=== PATIENT | male | born 1965 | race Caucasian/White ===

== ENCOUNTER 2019-07-08 23:47 | Emergency (ER) | payer MEDICAID, SELFPAY ==
[2019-07-08 23:51] VITALS: BMI 29.7
[2019-07-08 23:56] VITALS: BP 125/89; PULSE 95; RESP 18; O2SAT 90
[2019-07-08 23:58] VITALS: BP 125/89; PULSE 102; RESP 21; O2SAT 89
[2019-07-09] VITALS (8 sets, daily range): BP systolic 141–172; BP diastolic 94–115; PULSE 96–127; RESP 15–21; O2SAT 83–94
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
[2019-07-09] MEDS: HYDROcodone-acetaminophen 7.5-325 mg Tablet 1 TAB PO (01:10)
[2019-07-09] MEDS: morphine 4 mg/mL SDV 1 mL IM (02:15)
[2019-07-09] MEDS: ondansetron 2 mg/ML SDV 2 mL 4 MG IVP ×2 (03:20→05:36)
[2019-07-09] MEDS: morphine 4 mg/mL SDV 1 mL IVP (03:20)
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
[2019-07-09] MEDS: fentaNYL 50 mcg/mL INJ 2mL IVP ×5 (04:19→09:43)
[2019-07-09 04:46] LABS: Hematocrit 44.4 % (42.0-52.0); Hemoglobin 14.4 g/dL (11.7-16.6); Mean Corpuscular HGB Conc 32.4 g/dL (30.0-36.0); Mean Corpuscular Hemoglobin 29.4 pg (28.0-34.0); Mean Corpuscular Volume 90.8 fL (80-94); Platelet Count 363 10^3/cmm (130-400); Red Blood Count 4.89 10^6/uL (4.1-5.3); Red Cell Distribution Width 14.4 % (12.1-15.1); White Blood Count 17.2 10^3/uL (4.0-10.0)
[2019-07-09 04:56] LABS: INR 0.95 (0.8-1.2)
[2019-07-09] MEDS: iohexol 300 mg/mL 100 mL Btl IV (04:58)
[2019-07-09] MEDS: sodium chloride 0.9% 1,000 ML 125 ML IV (05:16)
[2019-07-09 05:22] LABS: Alanine Aminotransferase 52 U/L (0-41); Albumin Level 4.3 g/dL (3.5-5.2); Alkaline Phosphatase 124 IU/L (40-130); Anion Gap 18.5 (5-19); Aspartate Amino Transferase 61 U/L (0-40); Blood Urea Nitrogen 13 mg/dL (6-20); Calcium 10.5 mg/Dl (8.6-10.0); Carbon Dioxide 19 mmol/L (22-29); Chloride 100 mmol/L (98-107); Globulin 4.6 g/dL (1.3-4.6); Glomerular Filtration Rate 101.9 mL/min (90-130); Glucose 157 mg/dL (74-109); Potassium 4.5 mmol/L (3.5-5.1); Sodium 133 mmol/L (136-145); Total Bilirubin 0.2 mg/dL (0.15-1.2); Total Protein 8.9 g/dL (6.6-8.7)
[2019-07-09 05:46] LABS: Absolute Eosinophils 0.1 10^3/cmm (0.0-0.7); Absolute Segmented Neutrophil 15.8 10/cmm (1.6-7.1); Band Neutrophils Absolute 0.5 10^3/cmm (0.0-1.2); Eosinophils 1 %; Lymphocytes 4 %; Segmented Neutrophils 92 %; Total Cells Counted 100 (0-100)
[2019-07-09 05:47] LABS: Platelet Estimate Increased (Normal)
[2019-07-09] MEDS: metoclopramide 5 mg/mL SDV 2 mL 10 MG IVP (06:37)
--- NOTE | 2019-07-09 07:50 | PC.NURSE ---
pt c/o pain, RN notified.
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
[2019-07-09 08:11] LABS: Add Urine Microscopic? YES; Bilirubin Urine 1+ (NEGATIVE); Blood Urine 2+ (Negative); Glucose Urine UA Norm (Normal); Ketones Urine Negative (Negative); Leukocyte Esterase Urine Negative (Negative); Nitrate Urine Negative (Negative); Protein Urine Trace (Negative); Urine Appearance Hazy (CLEAR); Urine Color Yellow (Yellow); Urobilinogen Urine Norm (Negative); pH Urine 5 (5-7)
[2019-07-09 08:13] LABS: Bacteria Urine TRACE; Squamous Epithelial Cell Urine 0-4 (0-5); WBC Urine 0-4 /hpf (0-5)
[2019-07-09 08:14] LABS: Hyaline Casts Urine 0-4; Mucus Urine 1+; Sperm Urine 2+
[2019-07-09 08:15] LABS: Add Urine Culture? No
--- NOTE | 2019-07-09 09:43 | PC.NURSE ---
EMS here at this time, [facility] called and notified of departure.
== END 2019-07-09 09:44 | disposition other institution (70) ==
PROVIDERS: Emergency Medicine; Emergency Provider Family Medicine; Family Provider Family Medicine
DX: S32.011A Stable burst fracture of first lumbar vertebra, initial encounter for closed fracture (principal); F17.210 Nicotine dependence, cigarettes, uncomplicated; V89.2XXA Person injured in unspecified motor-vehicle accident, traffic, initial encounter
CPT/HCPCS: 71260; 72131; 74177; 80053; 81003; 85007; 85027; 85610; 96360; 96361; 96372; 96374; 96375; 99282; J2270; J2405; J2765; J3010; J7030; Q9967

== ENCOUNTER 2019-07-21 08:42 | Emergency (ER) | payer MEDICAID, SELFPAY ==
[2019-07-21 08:49] VITALS: BMI 28.1
[2019-07-21 08:57] VITALS: BP 129/85; PULSE 91; RESP 20; TEMP 36.6; O2SAT 96
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
[2019-07-21 09:27] VITALS: BP 128/90; PULSE 78; RESP 18; O2SAT 97
--- NOTE | 2019-07-21 12:35 | DCPLANNER ---
automotive general sales manager had message to speak with patient about getting established with a primary care physician. automotive general sales manager unable to speak with patient at this time, called this number was unreachable, then called [phone] and this was to [employer].
== END 2019-07-21 09:28 | disposition home or self-care (01) ==
PROVIDERS: Emergency Provider Nurse Practitioner Family; Family Provider Family Medicine
DX: S32.011A Stable burst fracture of first lumbar vertebra, initial encounter for closed fracture (principal); V89.2XXA Person injured in unspecified motor-vehicle accident, traffic, initial encounter; F17.210 Nicotine dependence, cigarettes, uncomplicated
CPT/HCPCS: 99281

== ENCOUNTER 2019-07-30 18:44 | Emergency (ER) | payer MEDICAID, SELFPAY ==
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
[2019-07-30 18:51] VITALS: BP 138/92; PULSE 121; RESP 18; TEMP 36.6; O2SAT 95; BMI 29.0
[2019-07-30 19:22] LABS: Basophils # 0.1 10^3/uL (0.0-0.1); Basophils % 0.6 %; Eosinophils # 0.2 10^3/uL (0.0-0.8); Eosinophils % 1.6 %; Hematocrit 41.1 % (42.0-52.0); Hemoglobin 13.7 g/dL (11.7-16.6); Lymphocytes # 2.5 10^3/uL (0.8-4.8); Lymphocytes % 24.2 %; Mean Corpuscular HGB Conc 33.3 g/dL (30.0-36.0); Mean Corpuscular Hemoglobin 29.4 pg (28.0-34.0); Mean Corpuscular Volume 88.2 fL (80-94); Mean Platelet Volume 9.2 fL (7.4-10.4); Monocytes # 0.6 10^3/uL (0.2-0.9); Monocytes % 5.9 %; Neutrophils % 67.1 %; Nucleated Red Blood Cells % 0 %; Platelet Count 383 10^3/cmm (130-400); Red Blood Count 4.66 10^6/uL (4.1-5.3); Red Cell Distribution Width 14.5 % (12.1-15.1); White Blood Count 10.4 10^3/uL (4.0-10.0)
[2019-07-30 19:31] LABS: Anion Gap 18.1 (5-19); Blood Urea Nitrogen 11 mg/dL (6-20); Calcium 9.7 mg/dL (8.5-10.5); Carbon Dioxide 20 mmol/L (22-29); Chloride 104 mmol/L (98-107); Glomerular Filtration Rate 70.6 mL/min (90-130); Glucose 135 mg/dL (74-109); Osmolality Calculated 284 mOsm/kg (285-295); Potassium 4.1 mmol/L (3.5-5.1); Sodium 138 mmol/L (136-145)
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
[2019-07-30 20:00] LABS: Bacteria Urine TRACE; Bilirubin Urine Neg (NEGATIVE); Blood Urine Neg (Negative); Glucose Urine UA Norm (Normal); Ketones Urine Negative (Negative); Leukocyte Esterase Urine Negative (Negative); Nitrate Urine Negative (Negative); Protein Urine Neg (Negative); RBC Urine RARE /hpf (0-2); Squamous Epithelial Cell Urine RARE (0-5); Urine Appearance Clear (CLEAR); Urine Color Yellow (Yellow); Urobilinogen Urine Norm (Negative); WBC Urine RARE /hpf (0-5); pH Urine 6 (5-7)
[2019-07-30 20:39] LABS: Lactate (Lactic Acid level) 4.1 mmol/L (0.5-2.2)
--- NOTE | 2019-07-30 20:40 | PC.NURSE ---
LACTIC 4.1
[2019-07-30 20:41] VITALS: RESP 17
[2019-07-30] MEDS: morphine 4 mg/mL SDV 1 mL IVP (20:41)
[2019-07-30] MEDS: ondansetron 2 mg/ML SDV 2 mL 4 MG IVP (20:41)
[2019-07-30 20:52] LABS: Alanine Aminotransferase 86 U/L (0-41); Albumin Level 4.3 g/dL (3.5-5.2); Alkaline Phosphatase 131 IU/L (40-130); Anion Gap 18.1 (5-19); Aspartate Amino Transferase 83 U/L (0-40); Blood Urea Nitrogen 11 mg/dL (6-20); C Reactive Protein 2.4 mg/L (0.0-4.9); Calcium 9.9 mg/dL (8.5-10.5); Carbon Dioxide 19 mmol/L (22-29); Chloride 105 mmol/L (98-107); Globulin 4.3 g/dL (1.3-4.6); Glomerular Filtration Rate 78.8 mL/min (90-130); Glucose 132 mg/dL (74-109); Lipase 33 U/L (13-60); Potassium 4.1 mmol/L (3.5-5.1); Sodium 138 mmol/L (136-145); Total Bilirubin 0.2 mg/dL (0.15-1.2); Total Protein 8.6 g/dL (6.6-8.7)
[2019-07-30] MEDS: sodium chloride 0.9% 1,000 ML 999 ML IV (21:07)
[2019-07-30 22:08] VITALS: BP 163/98; O2SAT 97
[2019-07-30 23:40] VITALS: BP 141/89
== END 2019-07-30 23:42 | disposition home or self-care (01) ==
PROVIDERS: Nurse Practitioner Family; Emergency Provider Emergency Medicine; Family Provider Family Medicine
DX: E86.0 Dehydration (principal); F17.210 Nicotine dependence, cigarettes, uncomplicated
CPT/HCPCS: 72131; 74176; 80048; 80053; 81001; 83605; 83690; 85025; 86140; 96360; 96361; 96374; 96375; 99283; J2270; J2405; J7030

== ENCOUNTER 2019-08-02 14:36 | Emergency (ER) | payer MEDICAID, SELFPAY ==
[2019-08-02 15:34] VITALS: BP 154/131; PULSE 104; RESP 16; TEMP 36.6; O2SAT 98; BMI 29.0
--- NOTE | 2019-08-02 16:06 | ED_ITS ---
Entered by Ceci Meneses, acting as scribe for Brenda Julian Aug 02, 2019 14:36 HPI - Back Pain/Injury General: Chief Complaint: Back Pain/Injury Stated Complaint: BACK PAIN Time Seen by Provider: 08/02/19 16:05 Source: patient and RN notes reviewed Mode of arrival: ambulatory Limitations: no limitations History of Present Illness: HPI Narrative: 53 yo male presents to ED with complaints of back pain that began 5 days ago. He said it feels like a kidney stone, which he has had in the past. He denies burning or pain with urination. He has no blood in urine. He said the pain is constant at an 8 out of 10 but it goes up to a 10 out of 10 and when it does that he feels like he is going to pass out. He denies fever but has had chills. The patient denies any other complaints at this time. MD elicited complaint: back pain (R flank) Pertinent past history: kidney stones Onset (ago): day(s) (5) Timing: constant Severity: severe Similar Symptoms Previously: Yes Quality: sharp Location: right flank Radiation: none Exacerbating factors: movement Relieving factors: none Context: history of kidney stones Associated symptoms: Reports nausea; Deny chills, difficulty walking, dysuria, fatigue, fever(s), hematuria, syncope or urinary urgency Work related injury: No Review of Systems General: Reports: other (negative unless marked) Const: Denies: fever, chills, body aches, fatigue, malaise or diaphoresis Eyes: Denies: change in vision or blurry vision ENMT: Denies: throat pain, painful swallowing, hoarseness, ear pain, ear discharge, Change in hearing or nasal discharge Card: Denies: chest pain, palpitations, irregular heart rhythm, syncope, pre- syncope, shortness of breath on exertion or shortness of breath when lying down Resp: Denies: shortness of breath, productive cough, non-productive cough, wheezing, coughing up blood or chest congestion GI: Reports: nausea : Denies: difficulty urinating, painful urination, urinary frequency, urinary urgency, decreased urine ouput, urinary incontinence or blood in urine Musc: Denies: neck pain, back pain, extremity pain, extremity swelling, joint pain, joint swelling, joint warmth or joint stiffness Skin/Breast: Denies: rash, skin tenderness or yellow skin Neuro: Denies: headache, numbness in extremities, weakness in extremities, changes in sensation, lack of coordination, difficulty walking, dizziness, vertigo or confusion Endo: Denies: excessive thirst, tired all the time, cold intolerance, excessive sweating, flushing or hot flashes Jose L/Lymph: Denies: easy bruising, easy bleeding, petechiae or enlarged lymph nodes All/Imm: Denies: hives, throat swelling, tongue swelling, facial swelling or acute wheezing PFSH ED PFSH: Statuses (acute, chronic, etc) shown below reflect problem list status as previously entered and may not be historically accurate Social History Smoking and tobacco status: current every day smoker Physical Exam Const: COMMON NORMALS: no apparent distress, oriented x3, no limitations, healthy appearing and well nourished EXAM LIMITATIONS: no altered mental status GENERAL APPEARANCE: cooperative, well kempt and well developed ORIENTATION/CONSCIOUSNESS: Yes awake HENMT: COMMON NORMALS: normocephalic, head/scalp atraumatic, hearing grossly normal bilaterally, external ears normal, EAC's normal, external nose normal and moist oral mucous membranes HEAD & SCALP: normal to inspection, normocephalic and atraumatic FACE & SINUS: normal facial exam and face symmetric NOSE: external nose normal and nares normal EXTERNAL EAR: Yes external ears normal EXTERNAL AUDITORY CANAL: EAC's normal MOUTH: oral and palatal mucosa normal and tongue normal Eye: COMMON NORMALS: PERRL, EOMs intact bilaterally, conjunctivae normal and no scleral icterus GENERAL EYE: normal appearance of both eyes and normal light reflex CONJUNCTIVA: Yes conjunctivae normal SCLERA: sclerae normal CORNEA: Yes corneas normal PUPIL: Yes PERRL DIRECT OPHTHALMOSCOPY: Yes normal light reflex Neck/C-Spine: COMMON NORMALS: full ROM, no lymphadenopathy, supple, no meningeal signs and no JVD GENERAL: Yes normal visual inspection and Yes trachea midline CERVICAL SPINE: Yes cervical ROM normal Chest: COMMONS NORMALS: inspection of chest normal and palpation of chest normal Resp: COMMON NORMALS: normal respiratory effort, no retractions, no use of accessory muscles and clear to auscultation bilaterally EFFORT & INSPECTION: Yes able to speak in complete sentences AUSCULTATION: clear to auscultation bilaterally Cardio: COMMON NORMALS: no JVD, regular rate, regular rhythm, S1 normal heart sound, S2 normal heart sound, no gallops, no clicks, no murmurs and no rub JUGULAR VENOUS DISTENTION: no JVD RATE: regular rate RHYTHM: regular rhythm HEART SOUNDS: S1 normal and S2 normal GI: COMMON NORMALS: soft to palpation, non-tender, no hepatosplenomegaly and no masses INSPECTION: Yes normal to inspection PALPATION: Yes soft and Yes no hepatosplenomegaly : COMMON NORMALS: Yes no CVA tenderness BLADDER/KIDNEY EXAM: Yes no CVA tenderness Back/Pelvis: COMMON NORMALS: no CVA tenderness, thoracic and lumbar spine normal to inspection, no thoracic nor lumbar tenderness and thoraco-lumbar ROM normal Extremity: COMMON NORMALS: normal to inspection, full ROM, normal capillary refill, no joint enlargement, no clubbing, cyanosis or edema and no calf tenderness Neuro: COMMON NORMALS: oriented x3, CN's II-XII intact bilaterally, moves all extremities, no focal motor deficits and no sensory deficits noted MENINGEAL SIGNS: Yes no meningeal signs Psych: COMMON NORMALS: mental status grossly normal, thought process normal, cooperative, affect normal, speech normal and activity/motor behavior normal APPEARANCE: Yes well kempt SPEECH: Yes normal speech THOUGHT PROCESS: normal thought process Skin: COMMON NORMALS: no rashes or lesions noted, skin turgor normal, no jaundice, no petechiae and no mottling GENERAL SKIN EXAM: no rashes or lesions noted and turgor normal Course Vital Signs: Vital signs: Vital Signs Temperature 97.9 F 08/02/19 15:34 Pulse Rate 91 08/02/19 18:52 Respiratory Rate 16 08/02/19 18:52 Blood Pressure 128/84 08/02/19 18:52 Pulse Oximetry 95 08/02/19 18:52 MDM - Back Pain/Injury MDM Narrative: Medical decision making narrative: Dave is a 53-year-old male who comes in complaining of 5 to 6 days of intermittent right flank pain. He states it feels like when he has had kidney stones in the past. There is no evidence of kidney stone on today's scan. Please see Dr. Mcnally's note from his previous visit but he was felt to be dehydrated at that time after drinking heavily. The symptoms appear to have resolved but he does have elevated liver enzymes. There is no evidence of gallbladder or liver pathology per lab or CT and ultrasound at this time. This could be just from alcoholic liver disease. The patient agrees to return should his symptoms change or worsen I have directed him to Dr. Mejia for outpatient HIDA scan and further work-up of his elevated liver enzymes. The patient states he understands all this and will follow-up as directed or return here if needed. Lab Data: Labs: Lab Results 08/02/19 08/02/19 08/02/19 Range/Units 16:28 16:30 16:30 WBC 7.7 (4.0-10.0) 10^3/ uL RBC 4.38 (4.1-5.3) 10^6/u L Hgb 12.9 (11.7-16.6) g/dL Hct 38.9 L (42.0-52.0) % MCV 88.8 (80-94) fL MCH 29.5 (28.0-34.0) pg MCHC 33.2 (30.0-36.0) g/dL RDW 14.7 (12.1-15.1) % Plt Count 311 (130-400) 10^3/c mm MPV 9.5 (7.4-10.4) fL Neut % (Auto) 57.6 % Lymph % (Auto) 30.4 % Burnett % (Auto) 7.8 % Eos % (Auto) 3.1 % Baso % (Auto) 0.8 % Neut # (Auto) 4.5 (1.8-7.7) 10^3/u L Lymph # (Auto) 2.4 (0.8-4.8) 10^3/u L Burnett # (Auto) 0.6 (0.2-0.9) 10^3/u L Eos # (Auto) 0.2 (0.0-0.8) 10^3/u L Baso # (Auto) 0.1 (0.0-0.1) 10^3/u L Nucleated RBC % (a uto) 0 % Nucleated RBCs # 0.0 /100WBC Sodium 132 L (136-145) mmol/L Potassium 4.6 (3.5-5.1) mmol/L Chloride 99 (98-107) mmol/L Carbon Dioxide 22 (22-29) mmol/L Anion Gap 15.6 (5-19) BUN 10 (6-20) mg/dL Creatinine 0.8 (0.7-1.2) mg/dL GFR Calculation 101.9 (90-130) mL/min Glucose 121 H (65-115) mg/dL Lactic Acid (0.5-2.2) mmol/L Calcium 10.1 (8.5-10.5) mg/dL Total Bilirubin 0.2 (0.15-1.2) mg/dL AST 110 H (0-40) U/L ALT 121 H (0-41) U/L Alkaline Phosphata se 134 H (40-130) IU/L Total Protein 8.0 (6.6-8.7) g/dL Albumin 4.4 (3.5-5.2) g/dL Globulin 3.6 (1.3-4.6) g/dL Lipase (13-60) U/L Urine Color Yellow (Yellow) Urine Appearance Clear (CLEAR) Urine pH 6.5 (5-7) Ur Specific Gravit y 1.005 (1.005-1.030) Urine Protein Neg (Negative) Urine Glucose (UA) Norm (Normal) Urine Ketones Negative (Negative) Urine Occult Blood Neg (Negative) Urine Nitrate Negative (Negative) Urine Bilirubin Neg (NEGATIVE) Urine Urobilinogen Norm (Negative) mg/dL Ur Leukocyte Dottie ase Negative (Negative) Urine RBC None (0-2) /hpf Urine WBC None (0-5) /hpf Ur Squamous Epith Cells 0-4 H (0-5) Urine Bacteria None (NONE) Acetaminophen (10-30) ug/mL Hepatitis A IgM Ab (Nonreactive) Hep Bs Antigen (Nonreactive) Hep B Core IgM Ab (Nonreactive) Hepatitis C Antibo dy (Nonreactive) 08/02/19 08/02/19 08/02/19 Range/Units 16:30 16:30 16:30 WBC (4.0-10.0) 10^3/ uL RBC (4.1-5.3) 10^6/u L Hgb (11.7-16.6) g/dL Hct (42.0-52.0) % MCV (80-94) fL MCH (28.0-34.0) pg MCHC (30.0-36.0) g/dL RDW (12.1-15.1) % Plt Count (130-400) 10^3/c mm MPV (7.4-10.4) fL Neut % (Auto) % Lymph % (Auto) % Burnett % (Auto) % Eos % (Auto) % Baso % (Auto) % Neut # (Auto) (1.8-7.7) 10^3/u L Lymph # (Auto) (0.8-4.8) 10^3/u L Burnett # (Auto) (0.2-0.9) 10^3/u L Eos # (Auto) (0.0-0.8) 10^3/u L Baso # (Auto) (0.0-0.1) 10^3/u L Nucleated RBC % (a uto) % Nucleated RBCs # /100WBC Sodium (136-145) mmol/L Potassium (3.5-5.1) mmol/L Chloride (98-107) mmol/L Carbon Dioxide (22-29) mmol/L Anion Gap (5-19) BUN (6-20) mg/dL Creatinine (0.7-1.2) mg/dL GFR Calculation (90-130) mL/min Glucose (65-115) mg/dL Lactic Acid 1.3 (0.5-2.2) mmol/L Calcium (8.5-10.5) mg/dL Total Bilirubin (0.15-1.2) mg/dL AST (0-40) U/L ALT (0-41) U/L Alkaline Phosphata se (40-130) IU/L Total Protein (6.6-8.7) g/dL Albumin (3.5-5.2) g/dL Globulin (1.3-4.6) g/dL Lipase 22 (13-60) U/L Urine Color (Yellow) Urine Appearance (CLEAR) Urine pH (5-7) Ur Specific Gravit y (1.005-1.030) Urine Protein (Negative) Urine Glucose (UA) (Normal) Urine Ketones (Negative) Urine Occult Blood (Negative) Urine Nitrate (Negative) Urine Bilirubin (NEGATIVE) Urine Urobilinogen (Negative) mg/dL Ur Leukocyte Dottie ase (Negative) Urine RBC (0-2) /hpf Urine WBC (0-5) /hpf Ur Squamous Epith Cells (0-5) Urine Bacteria (NONE) Acetaminophen < 5.0 L (10-30) ug/mL Hepatitis A IgM Ab Non-reactive (Nonreactive) Hep Bs Antigen Reactive H (Nonreactive) Hep B Core IgM Ab Non-reactive (Nonreactive) Hepatitis C Antibo dy Reactive H (Nonreactive) Imaging Data^: CT Abd/Pel: Radiologist's impression: [address] [address] [address] Scan Report Signed Patient: Dave Resendez #: [id number] : 1965Acct#:[id number] Age/Sex: 53 / MADM Date: 08/02/19 Loc: ERRoom/Bed: Attending Dr: Ordering Provider/Ordering MD: Brenda Julian DO Date of Service: 08/02/19 Procedure(s): CT kidney stone 72074 Accession Number(s): [id number] Report Number: [id number] PROCEDURE INFORMATION: Exam: CT Abdomen And Pelvis Without Contrast Exam date and time: 08/02/2019 4:22 PM Age: 53 years old Clinical indication: Abdominal pain; Flank; Right; Prior surgery; Surgery type: Bladder biopsy; Additional info: Flank/abdominal pain TECHNIQUE: Imaging protocol: Computed tomography of the abdomen and pelvis without contrast. Total DLP: 1355.77 mGy-cm Radiation optimization: All CT scans at this facility use at least one of these dose optimization techniques: automated exposure control; mA and/or kV adjustment per patient size (includes targeted exams where dose is matched to clinical indication); or iterative reconstruction. COMPARISON: CT chest abd pel w con* 07/09/2019 5:[address] kidney stone [id number] 07/30/2019 8:56:41 PM FINDINGS: Limitations: The absence of intravenous contrast lessens the sensitivity of this study for solid organ abnormalities. Mediastinum: There is a small hiatal hernia. Liver: There is no focal abnormality within the liver. Gallbladder and bile ducts: The gallbladder is normal. Pancreas: The pancreas is normal. Spleen: The spleen is normal. Adrenals: The adrenal glands are normal. Kidneys and ureters: The kidneys are normal. There is no evidence of renal or ureteral calcifications. There is no evidence of hydronephrosis. Stomach and bowel: There is no evidence of colitis/diverticulitis. Appendix: A normal appendix is identified. Intraperitoneal space: There is no evidence of free intraperitoneal fluid. Vasculature: The aorta demonstrates mild atherosclerotic calcification. There is no evidence of an abdominal aortic aneurysm. Lymph nodes: Unremarkable. No enlarged lymph nodes. Bladder: Urinary bladder is unremarkable. Reproductive: The prostate and seminal vesicles are normal. Bones/joints: There are old compression fractures of L1 and the superior endplate of L5 with kyphoplasty at L1. Soft tissues: Unremarkable. CT/CT kidney stone [id number] IMPRESSION: No urinary tract calculi are identified. Radiation Dose CTDIVOL = (mGy): DLP = 1355.77 (mGy-cm) Dictated By:Everett Joseph Signed By:Giuseppe Joseph Date/Time:08/02/19 1717 DD/ Discharge Plan Discharge Patient Disposition: Home, Self-Care Clinical Impression: Acute flank pain Condition: Stable Prescriptions: No Action venlafaxine 75 mg capsule,extended release 24hr 75 mg PO DAILY RF: 0 Klonopin 0.5 mg tablet 0.5 mg PO PRN PRN (Reason: Agitation) RF: 0 venlafaxine 150 mg capsule,extended release 24hr 150 mg PO DAILY RF: 0 gabapentin 800 mg tablet 800 mg PO TID RF: 0 omeprazole 20 mg capsule,delayed release(DR/EC) 20 mg PO DAILY RF: 0 Zyprexa 20 mg Tablet 20 mg PO DAILY RF: 0 hydrocodone-acetaminophen 5-325 mg tablet 1 tab PO Q6H PRN (Reason: pain) Qty: 20 RF: 0 Discharge Orders: Discharge Order (Routine); Ordered 08/02/19 Ordered By: Brenda Julian Referrals: Trever Mejia MD [Physician] - 1-3 days Katina Manriquez MD [Family Provider] - Discharge Diet: Advance as tolerated Discharge Activity: Resume usual activity Patient Instructions: Abdominal Pain - Adult, Abdominal Pain (ED), Flank Pain (ED) Activity Restrictions/Additional Instructions: Please return to the ER immediately for any of the signs or symptoms listed on your discharge instruction sheets, worsening/changing of your symptoms, you are not getting better as quickly as expected, or for ANY other cause or concerns. A definitive cause of your pain has not been determined. If your symptoms worsen or change in any way please return to the ER for recheck. Be certain to follow-up with Dr. Mejia as an outpatient as soon as possible for further evaluation of your pain. Discharge Date/Time: 08/02/19 18:53 Coding Level of Care Code ED Concrete Block Mason for Chg Fwd Exam Problem Focused The documentation recorded by the Zaira christy Valerie R, accurately reflects the service I personally performed and the decisions made by , Brenda Julian Aug 02, 2019 14:36
--- NOTE | 2019-08-02 16:18 | XR_ITS ---
WS: [id number] CHEST XRAY TECHNIQUE: Portable chest. CLINICAL INFORMATION: cough COMPARISON: [id number] FINDINGS: Heart: Normal cardiac silhouette. Lungs: Lungs are clear. No consolidation or pleural effusion. Bones: Normal visualized bony structures. XR/XR chest 1V portable [id number] IMPRESSION: Normal chest
--- NOTE | 2019-08-02 16:18 | CTR_ITS ---
PROCEDURE INFORMATION: Exam: CT Abdomen And Pelvis Without Contrast Exam date and time: 08/02/2019 4:22 PM Age: 53 years old Clinical indication: Abdominal pain; Flank; Right; Prior surgery; Surgery type: Bladder biopsy; Additional info: Flank/abdominal pain TECHNIQUE: Imaging protocol: Computed tomography of the abdomen and pelvis without contrast. Total DLP: 1355.77 mGy-cm Radiation optimization: All CT scans at this facility use at least one of these dose optimization techniques: automated exposure control; mA and/or kV adjustment per patient size (includes targeted exams where dose is matched to clinical indication); or iterative reconstruction. COMPARISON: CT chest abd pel w con* 07/09/2019 5:[address] kidney stone [id number] 07/30/2019 8:56:41 PM FINDINGS: Limitations: The absence of intravenous contrast lessens the sensitivity of this study for solid organ abnormalities. Mediastinum: There is a small hiatal hernia. Liver: There is no focal abnormality within the liver. Gallbladder and bile ducts: The gallbladder is normal. Pancreas: The pancreas is normal. Spleen: The spleen is normal. Adrenals: The adrenal glands are normal. Kidneys and ureters: The kidneys are normal. There is no evidence of renal or ureteral calcifications. There is no evidence of hydronephrosis. Stomach and bowel: There is no evidence of colitis/diverticulitis. Appendix: A normal appendix is identified. Intraperitoneal space: There is no evidence of free intraperitoneal fluid. Vasculature: The aorta demonstrates mild atherosclerotic calcification. There is no evidence of an abdominal aortic aneurysm. Lymph nodes: Unremarkable. No enlarged lymph nodes. Bladder: Urinary bladder is unremarkable. Reproductive: The prostate and seminal vesicles are normal. Bones/joints: There are old compression fractures of L1 and the superior endplate of L5 with kyphoplasty at L1. Soft tissues: Unremarkable. CT/CT kidney stone [id number] IMPRESSION: No urinary tract calculi are identified. Radiation Dose CTDIVOL = (mGy): DLP = 1355.77 (mGy-cm)
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
[2019-08-02 16:45] LABS: Basophils # 0.1 10^3/uL (0.0-0.1); Basophils % 0.8 %; Eosinophils # 0.2 10^3/uL (0.0-0.8); Eosinophils % 3.1 %; Hematocrit 38.9 % (42.0-52.0); Hemoglobin 12.9 g/dL (11.7-16.6); Lymphocytes # 2.4 10^3/uL (0.8-4.8); Lymphocytes % 30.4 %; Mean Corpuscular HGB Conc 33.2 g/dL (30.0-36.0); Mean Corpuscular Hemoglobin 29.5 pg (28.0-34.0); Mean Corpuscular Volume 88.8 fL (80-94); Mean Platelet Volume 9.5 fL (7.4-10.4); Monocytes # 0.6 10^3/uL (0.2-0.9); Monocytes % 7.8 %; Neutrophils # 4.5 10^3/uL (1.8-7.7); Neutrophils % 57.6 %; Nucleated Red Blood Cells % 0 %; Platelet Count 311 10^3/cmm (130-400); Red Blood Count 4.38 10^6/uL (4.1-5.3); Red Cell Distribution Width 14.7 % (12.1-15.1); White Blood Count 7.7 10^3/uL (4.0-10.0)
[2019-08-02 16:49] LABS: Bilirubin Urine Neg (NEGATIVE); Blood Urine Neg (Negative); Glucose Urine UA Norm (Normal); Ketones Urine Negative (Negative); Leukocyte Esterase Urine Negative (Negative); Nitrate Urine Negative (Negative); Protein Urine Neg (Negative); Specific Gravity, Urine 1.005 (1.005-1.030); Urine Appearance Clear (CLEAR); Urine Color Yellow (Yellow); Urobilinogen Urine Norm (Negative); pH Urine 6.5 (5-7)
[2019-08-02 16:57] LABS: Lactic Sepsis W/Reflex 1.3 mmol/L (0.5-2.2)
[2019-08-02 17:04] LABS: Alanine Aminotransferase 121 U/L (0-41); Albumin Level 4.4 g/dL (3.5-5.2); Alkaline Phosphatase 134 IU/L (40-130); Anion Gap 15.6 (5-19); Aspartate Amino Transferase 110 U/L (0-40); Blood Urea Nitrogen 10 mg/dL (6-20); Calcium 10.1 mg/dL (8.5-10.5); Carbon Dioxide 22 mmol/L (22-29); Chloride 99 mmol/L (98-107); Creatinine Clr Calc Pharmacy 113.1443; Globulin 3.6 g/dL (1.3-4.6); Glomerular Filtration Rate 101.9 mL/min (90-130); Potassium 4.6 mmol/L (3.5-5.1); Sodium 132 mmol/L (136-145); Total Bilirubin 0.2 mg/dL (0.15-1.2)
[2019-08-02] MEDS: ondansetron 2 mg/ML SDV 2 mL 4 MG IVP (17:05)
[2019-08-02 17:08] VITALS: RESP 16
[2019-08-02] MEDS: morphine 4 mg/mL SDV 1 mL IVP (17:08)
[2019-08-02 17:11] LABS: Add Urine Culture? No; Squamous Epithelial Cell Urine 0-4 (0-5)
--- NOTE | 2019-08-02 17:29 | US_ITS ---
WS: [id number] Complete ABDOMINAL ULTRASOUND HISTORY: Abdominal Pain COMPARISON: None available. Liver: 20.0 cm in length. Liver is moderately enlarged. Mild coarsened echotexture. No bile duct dila tation or mass. Gallbladder: Normally distended with no gallstones, wall thickening or pericholecystic fluid. Gallbladder wall thickness: 2 mm. Pancreas: Not visualized. CBD: 2.0 mm. Right kidney: 10.7 cm x 5.0 cm x 4.9 cm. No mass, cortical thickening or hydronephrosis. Left kidney: 11.7 cm x 5.5 cm x 5.5 cm. No mass, cortical thickening or hydronephrosis. Spleen: Normal size and echogenicity. Abdominal aorta and IVC are within normal limits. No ascites. US/US abdomen complete* [id number] IMPRESSION: 1. Moderate hepatomegaly and mild hepatic steatosis. 2. Normal gallbladder. 3. No abnormality identified.
[2019-08-02 18:04] LABS: Lipase 22 U/L (13-60)
[2019-08-02 18:08] LABS: Acetaminophen < 5.0 ug/mL (10-30)
[2019-08-02 18:14] LABS: Hepatitis A Antibody IgM. Non-Reactive (Nonreactive); Hepatitis B Core IgM Non-Reactive (Nonreactive); Hepatitis B Surface Antigen. Reactive (Nonreactive); Hepatitis C Virus Antibody Reactive (Nonreactive)
[2019-08-02 18:52] VITALS: BP 128/84; PULSE 91; RESP 16; O2SAT 95
[2019-08-03 09:02] LABS: Glucose 121 mg/dL (65-115)
--- NOTE | 2019-08-04 12:34 | DCPLANNER ---
maintenance and engineering manager had message to schedule a follow up appointment for patient with Dr. Mejia. maintenance and engineering manager was told that patient has a follow up appointment scheduled for Thursday, August 17, 2019 at 10:[address] Mejia. Clinic will call patient with appointment information.
--- NOTE | 2019-08-19 15:11 | DCPLANNER ---
Patient did attend appointment scheduled for 08.17.[address] Mejia.
== END 2019-08-02 18:53 | disposition home or self-care (01) ==
PROVIDERS: Emergency Provider Emergency Medicine; Family Provider Family Medicine
DX: R10.9 Unspecified abdominal pain (principal); F17.200 Nicotine dependence, unspecified, uncomplicated; Z87.442 Personal history of urinary calculi
CPT/HCPCS: 36415; 71045; 74176; 76700; 80053; 80074; 80307; 81001; 83605; 83690; 85025; 96360; 96361; 96374; 96375; 99282; 99284; J2270; J2405; J7030

== ENCOUNTER 2019-08-04 12:48 | Emergency (ER) | payer MEDICAID, SELFPAY ==
[2019-08-04 13:06] VITALS: BP 145/104; PULSE 105; RESP 18; TEMP 36.4; O2SAT 98; BMI 27.7
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
[2019-08-04 15:04] LABS: Basophils % 0.6 %; Eosinophils # 0.1 10^3/uL (0.0-0.8); Eosinophils % 1.7 %; Hematocrit 41.7 % (42.0-52.0); Hemoglobin 13.7 g/dL (11.7-16.6); Lymphocytes # 1.8 10^3/uL (0.8-4.8); Lymphocytes % 25.8 %; Mean Corpuscular HGB Conc 32.9 g/dL (30.0-36.0); Mean Corpuscular Hemoglobin 29.5 pg (28.0-34.0); Mean Corpuscular Volume 89.7 fL (80-94); Mean Platelet Volume 9.6 fL (7.4-10.4); Monocytes # 0.3 10^3/uL (0.2-0.9); Monocytes % 4.8 %; Neutrophils # 4.6 10^3/uL (1.8-7.7); Neutrophils % 66.8 %; Nucleated Red Blood Cells % 0 %; Platelet Count 293 10^3/cmm (130-400); Red Blood Count 4.65 10^6/uL (4.1-5.3); Red Cell Distribution Width 14.6 % (12.1-15.1); White Blood Count 6.9 10^3/uL (4.0-10.0)
[2019-08-04 15:26] LABS: Alanine Aminotransferase 172 U/L (0-41); Albumin Level 4.5 g/dL (3.5-5.2); Alkaline Phosphatase 133 IU/L (40-130); Anion Gap 17.2 (5-19); Aspartate Amino Transferase 142 U/L (0-40); Blood Urea Nitrogen 16 mg/dL (6-20); Calcium 10.5 mg/dL (8.5-10.5); Carbon Dioxide 22 mmol/L (22-29); Chloride 102 mmol/L (98-107); Globulin 4.3 g/dL (1.3-4.6); Glucose 91 mg/dL (65-115); Potassium 4.2 mmol/L (3.5-5.1); Sodium 137 mmol/L (136-145); Total Bilirubin 0.3 mg/dL (0.15-1.2); Total Protein 8.8 g/dL (6.6-8.7)
[2019-08-04 15:34] LABS: Add Urine Microscopic? NO
[2019-08-04 15:40] LABS: Bilirubin Urine Neg (NEGATIVE); Blood Urine Neg (Negative); Glucose Urine UA Norm (Normal); Ketones Urine Negative (Negative); Leukocyte Esterase Urine Negative (Negative); Nitrate Urine Negative (Negative); Protein Urine Neg (Negative); Specific Gravity, Urine 1.015 (1.005-1.030); Urine Appearance Clear (CLEAR); Urine Color Yellow (Yellow); Urobilinogen Urine Norm (Negative); pH Urine 6 (5-7)
[2019-08-04 16:18] VITALS: BP 138/100; PULSE 100; RESP 15; O2SAT 95
== END 2019-08-04 16:19 | disposition home or self-care (01) ==
PROVIDERS: Emergency Provider Family Medicine; Family Provider Family Medicine
DX: S32.000A Wedge compression fracture of unspecified lumbar vertebra, initial encounter for closed fracture (principal); Z98.890 Other specified postprocedural states; B19.10 Unspecified viral hepatitis B without hepatic coma; F17.210 Nicotine dependence, cigarettes, uncomplicated; X58.XXXA Exposure to other specified factors, initial encounter
CPT/HCPCS: 36415; 80053; 81003; 85025; 99282; 99283; A9270; J0131

== ENCOUNTER 2019-08-11 13:52 | Emergency (ER) | payer MEDICAID, SELFPAY ==
[2019-08-11 14:04] VITALS: BP 123/101; PULSE 126; RESP 18; TEMP 36.3; O2SAT 98; BMI 27.8
[2019-08-11 14:28] VITALS: BP 134/80; PULSE 125; RESP 16; O2SAT 97
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
[2019-08-11] MEDS: orphenadrine 30 mg/mL Inj 2 mL 60 MG IM (16:10)
[2019-08-11] MEDS: dexamethasone 10 mg/mL INJ 8 MG IM (16:12)
[2019-08-11 16:18] VITALS: BP 139/89; PULSE 95; RESP 16; TEMP 36.4; O2SAT 98
== END 2019-08-11 16:23 | disposition home or self-care (01) ==
PROVIDERS: Emergency Provider Physician Assistant; Family Provider Family Medicine
DX: M54.9 Dorsalgia, unspecified (principal)
CPT/HCPCS: 96372; 99281; 99283; J1100; J2360

== ENCOUNTER → 2019-08-17 12:19 | Outpatient (BNVA) | payer MEDICAID, SELFPAY | PROVIDERS: Family Provider Family Medicine; Visit Provider Internal Medicine | DX: B18.1 Chronic viral hepatitis B without delta-agent (principal); S22.010A Wedge compression fracture of first thoracic vertebra, initial encounter for closed fracture; X58.XXXA Exposure to other specified factors, initial encounter; Z09 Encounter for follow-up examination after completed treatment for conditions other than malignant neoplasm | CPT/HCPCS: 36415; 80053; 85025 ==

== ENCOUNTER → 2019-09-08 12:49 | Outpatient (BNVA) | payer MEDICAID, SELFPAY | PROVIDERS: Family Provider Family Medicine; Visit Provider Nurse Practitioner | DX: F25.1 Schizoaffective disorder, depressive type (principal); F17.210 Nicotine dependence, cigarettes, uncomplicated; F03.90 Unspecified dementia, unspecified severity, without behavioral disturbance, psychotic disturbance, mood disturbance, and anxiety | CPT/HCPCS: 99213 ==

== ENCOUNTER 2019-09-13 17:20 | Emergency (ER) | payer MEDICAID, SELFPAY ==
[2019-09-13 17:23] VITALS: BP 110/90; PULSE 115; RESP 20; TEMP 36.6; O2SAT 99; BMI 27.6
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
[2019-09-13] MEDS: ketorolac 60 mg/2 mL INJ IM (18:24)
[2019-09-13] MEDS: orphenadrine 30 mg/mL Inj 2 mL 60 MG IM (18:26)
[2019-09-13 19:07] VITALS: BP 102/65; RESP 18
== END 2019-09-13 19:07 | disposition home or self-care (01) ==
PROVIDERS: Emergency Provider Family Medicine; Family Provider Family Medicine
DX: S22.018A Other fracture of first thoracic vertebra, initial encounter for closed fracture (principal); S33.5XXA Sprain of ligaments of lumbar spine, initial encounter; F17.210 Nicotine dependence, cigarettes, uncomplicated; F03.90 Unspecified dementia, unspecified severity, without behavioral disturbance, psychotic disturbance, mood disturbance, and anxiety; V89.2XXA Person injured in unspecified motor-vehicle accident, traffic, initial encounter
CPT/HCPCS: 12345; 96372; 99281; 99283; J1885; J2360

== ENCOUNTER 2019-09-15 11:47 | Outpatient (CLI) | payer MEDICAID, SELFPAY ==
--- NOTE | 2019-09-15 11:45 | MR_ITS ---
WS: [id number] MRI THORACIC SPINE WITHOUT CONTRAST TECHNIQUE: Sagittal T1, T2 and STIR imaging. Axial T2 imaging. Noncontrast imaging obtained. CLINICAL INFORMATION: BACK PAIN COMPARISON: None. FINDINGS: Mild thoracic kyphosis. Chronic appearing biconcave compression fracture L1 vertebral body with verte broplasty changes and loss of approximately 40% vertebral body height. Slight retropulsion posterior superior cortex with slight effacement of ventral thecal sac. Compression appears unchanged since Jul. A few tiny disc protrusions the mid thoracic spine more prominent at T5-T6 and T7-T8 with slight effacement of ventral thecal sac. Mild to moderate facet arthropathy in the lower thoracic spine. Mild bony foraminal narrowing T10-11 and right L1-2. Adrenal glands are normal. Normal visualized thoracic aorta. Small esophageal hiatal hernia. MR/MR thoracic spin wo con* [id number] IMPRESSION: 1. Mild thoracic curve. No acute compression fractures. 2. Stable L1 compression fracture with biconcave compression. Mild retropulsio n posterior superior cortex with slight effacement of ventral thecal sac. Compr ession with vertebroplasty changes unchanged from August 28, 2019 3. Mild bony foraminal narrowing described above. 4. Moderate facet arthropathy lower thoracic spine. 5. A few tiny disc protrusions in the mid thoracic spine more prominent at T5- T6 and T7-T8.
== END 2019-09-15 11:48 | disposition home or self-care (01) ==
LOC: RADSHAW 11:49
PROVIDERS: Family Provider Family Medicine; PCP Internal Medicine; Visit Provider Internal Medicine
DX: S22.010A Wedge compression fracture of first thoracic vertebra, initial encounter for closed fracture (principal); X58.XXXA Exposure to other specified factors, initial encounter; M51.24 Other intervertebral disc displacement, thoracic region
CPT/HCPCS: 72146

== ENCOUNTER 2019-11-08 16:16 | Outpatient (CLI) | payer MEDICAID, SELFPAY ==
[2019-11-08 17:19] LABS: Tumor Marker Alpha Fetoprotein 4.2 ng/mL (0-8.3)
[2019-11-11 16:06] LABS: Hepatitis B Virus DNA PCR 8.15 Log IU/mL (NOT DETECTED)
[2019-11-21 20:15] LABS: Hepatitis C Genotype RNA NOT DETECTED
== END 2019-11-08 16:17 | disposition home or self-care (01) ==
LOC: LAB 16:19
PROVIDERS: PCP Internal Medicine; Visit Provider Internal Medicine
DX: B19.20 Unspecified viral hepatitis C without hepatic coma (principal); R76.8 Other specified abnormal immunological findings in serum; B18.2 Chronic viral hepatitis C
CPT/HCPCS: 82105; 87517; 87902

== ENCOUNTER → 2019-12-01 08:23 | Outpatient (BNVA) | payer MEDICAID, SELFPAY | PROVIDERS: PCP Internal Medicine; Visit Provider Nurse Practitioner | DX: F25.1 Schizoaffective disorder, depressive type (principal); F03.90 Unspecified dementia, unspecified severity, without behavioral disturbance, psychotic disturbance, mood disturbance, and anxiety; F17.210 Nicotine dependence, cigarettes, uncomplicated | CPT/HCPCS: 99214 ==

== ENCOUNTER → 2020-03-16 07:57 | Outpatient (BNVA) | payer MEDICAID, SELFPAY | PROVIDERS: PCP Internal Medicine; Visit Provider Nurse Practitioner | DX: F25.1 Schizoaffective disorder, depressive type (principal) | CPT/HCPCS: 99213 ==

== ENCOUNTER 2020-04-13 06:41 | Outpatient (CLI) | payer MEDICAID, SELFPAY ==
--- NOTE | 2020-04-13 07:04 | NMCV_ITS ---
NM kike perf SPECT r/s* [id number] Dave Resendez Age: 54 Gender: M : 1965 Exam Date: 04/13/2020 07:46 Ordering Phys: Trever Mejia MD Technologist: SANJAY Quintana Exam Location: [facility] Indications: Atypical chest pain STRESS TEST [facility] IMAGE PROTOCOL Rest/Stress 1 Lexiscan Day Radiopharmaceutical Dose (mCi) Administration Site Administered by Rest: Tc-99m 10.8 IV SANJAY Quintana Sestamibi Stress:Tc-99m 32.5 IV SANJAY Maya Sestamibi Rest: 13-Apr-2020 60 Discovery 630 Stress: 13-Apr-2020 30 Discovery 630 0.4mg Lexiscan. Images obtained in supine and prone position. SPECT RESULTS Technical Quality: Good Raw Data Analysis: Normal Image Corrections: No attenuation or motion correction applied Summed Stress Score: 0 Summed Rest Score: 0 Summed Difference Score: 0 PERFUSION FINDINGS SPECT images demonstrate homogeneous tracer distribution throughout the myocardium. FUNCTIONAL RESULTS (calculated via Gated SPECT) Stress Image LV EF (%): 82 Stress EDV (mL):71 TID: 1.19 Stress ESV (mL):13 FUNCTIONAL FINDINGS: The left ventricle is normal in size. Transient Ischemia Dilatation of 1.2. There is hyperdynamic left ventricular systolic function. The left ventricular ejection fraction is hyperdynamic with a value of 82%. There is hyperdynamic left ventricular wall thickening. Normal end-diastolic and end-systolic volumes. IMPRESSIONS 1. Myocardial perfusion imaging is normal. 2. Overall left ventricular systolic function is normal without regional wall motion abnormalities. 3. The left ventricular ejection fraction is hyperdynamic with a value of 82%. 4. Transient ischemic dilation index mildly elevated at 1.2. This may represent subendocardial ischemia or hypertensive response. 5. No prior similar studies to compare. Karin Francisco MD (Electronically Signed) Final Date: 13 April 2020 13:16 S
--- NOTE | 2020-04-13 07:04 | ECG_ITS ---
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 Interpretive Statements NAME OF STUDY: LEXISCAN SESTAMIBI STRESS TEST INDICATION: Atypical Chest Pain PROCEDURE: At the baseline, the blood pressure was 136/94 mmHg, oxygen saturation 95% with a heart rate of 88 bpm. The electrocardiogram showed normal sinus rhythm, normal axis with normal ST and T's. The Lexiscan was infused over a period of 20 seconds. A total of 0.4 milligrams of Lexiscan was infused. The stress phase was continued for a total of 5 minutes. Heart rate at the end of the stress phase was 106 bpm, oxygen saturation 95% with a blood pressure of 138/84 mmHg. The EKG at the peak infusion revealed sinus tachycardia with no significant ST-T wave changes. Sestamibi was injected 20 seconds after the Lexiscan infusion. Blood pressure at the end of the recovery phase was 129/86 mmHg, oxygen saturation 94% with a heart rate of 102 beats per minute. CONCLUSION: 1. Normal EKG response to LexiScan infusion. 2. No LexiScan induced chest pain or cardiac arrhythmia. 3. Normal blood pressure and heart rate response. 4. Sestamibi/sestamibi perfusion scan pending; see separate report. Electronically Signed On 04-13-2020 13:11:21 CDT by Karin Francisco M.D. [email or web address]
[2020-04-13 07:05] VITALS: BMI 29.0
[2020-04-13] MEDS: regadenoson 0.4 Mg/5 ml Syringe IVP (08:39)
[2020-04-13 08:57] VITALS: BP 129/86; PULSE 102
== END 2020-04-13 06:42 | disposition home or self-care (01) ==
PROVIDERS: PCP Internal Medicine; Visit Provider Internal Medicine
DX: R07.89 Other chest pain (principal)
CPT/HCPCS: 78452; 93017; A9500; J2785

== ENCOUNTER → 2020-05-30 07:39 | Outpatient (BNVA) | payer MEDICAID, SELFPAY | PROVIDERS: PCP Internal Medicine; Visit Provider Nurse Practitioner | DX: F25.1 Schizoaffective disorder, depressive type (principal); F17.210 Nicotine dependence, cigarettes, uncomplicated | CPT/HCPCS: 99213 ==

== ENCOUNTER 2020-08-08 10:00 | Outpatient (CLI) | payer MEDICAID, SELFPAY ==
--- NOTE | 2020-08-08 10:02 | MR_ITS ---
WS: [id number] MRI CERVICAL SPINE NONCONTRAST TECHNIQUE: Sagittal T1, T2 and STIR imaging. Axial T2, gradient, and fiesta imaging. CLINICAL INFORMATION: M54.2 - Cervicalgia COMPARISON: None. FINDINGS: Straightening of the normal cervical lordosis. Cord signal is normal. Mild disc bulging C3-4. C2-C3: Normal. C3-C4: Mild disc bulging with osteophytic ridging. Mild left and no significant right foraminal narro wing. Spinal canal is patent. C4-C5: Mild left and no significant right foraminal narrowing. Spinal canal is patent. Mild facet art hropathy. C5-C6: Disc osteophytic ridging. Mild left and no significant right foraminal narrowing. Mild facet a rthropathy. Spinal canal is patent. C6-C7: Mild left and no significant right foraminal narrowing. Spinal canal is patent. Mild facet art hropathy. C7-T1: Mild bilateral foraminal narrowing. Mild facet arthropathy. Visualized brain stem structures: Normal. Prevertebral soft tissues: Normal. MR/MR cervical spin wo con* [id number] IMPRESSION: 1. Straightening of the normal cervical lordosis. Cord signal is normal. 2. No high-grade central canal stenosis. 3. Disc osteophyte complex C3-C4 with slight effacement of ventral thecal sac. Mild to moderate left and mild right bony foraminal narrowing at this level. 4. Otherwise mild bony foraminal narrowing left C4-C5, left C5-C6, and left C6 -C7. 5. Mild left greater than right C7-T1 bony foraminal narrowing.
== END 2020-08-08 10:01 | disposition home or self-care (01) ==
LOC: RADSHAW 10:00
PROVIDERS: PCP Internal Medicine; Visit Provider Internal Medicine
DX: M25.78 Osteophyte, vertebrae (principal)
CPT/HCPCS: 72141

== ENCOUNTER → 2020-09-28 09:16 | Outpatient (BNVA) | payer MEDICAID, SELFPAY | PROVIDERS: PCP Internal Medicine; Visit Provider Nurse Practitioner | DX: F25.1 Schizoaffective disorder, depressive type (principal); F17.210 Nicotine dependence, cigarettes, uncomplicated | CPT/HCPCS: 99214 ==

== ENCOUNTER → 2020-10-25 08:31 | Outpatient (BNVA) | payer MEDICAID, SELFPAY | PROVIDERS: PCP Internal Medicine; Visit Provider Nurse Practitioner | DX: F25.1 Schizoaffective disorder, depressive type (principal); F17.210 Nicotine dependence, cigarettes, uncomplicated | CPT/HCPCS: 99214 ==

== ENCOUNTER → 2020-11-21 11:00 | Outpatient (BNVA) | payer MEDICAID, SELFPAY | PROVIDERS: PCP Internal Medicine; Visit Provider Internal Medicine | DX: B18.1 Chronic viral hepatitis B without delta-agent (principal); S22.010A Wedge compression fracture of first thoracic vertebra, initial encounter for closed fracture; R76.8 Other specified abnormal immunological findings in serum | CPT/HCPCS: 80053; 83550; 84443; 85025 ==

== ENCOUNTER → 2020-12-10 07:39 | Outpatient (BNVA) | payer MEDICAID, SELFPAY | PROVIDERS: PCP Internal Medicine; Visit Provider Nurse Practitioner | DX: F25.1 Schizoaffective disorder, depressive type (principal); F17.210 Nicotine dependence, cigarettes, uncomplicated | CPT/HCPCS: 99214 ==

== ENCOUNTER → 2021-01-22 10:29 | Outpatient (BNVA) | payer MEDICAID, SELFPAY | PROVIDERS: PCP Internal Medicine; Visit Provider Internal Medicine | DX: Z01.812 Encounter for preprocedural laboratory examination (principal); Z20.822 Contact with and (suspected) exposure to COVID-19; E61.1 Iron deficiency | CPT/HCPCS: 87635 ==

== ENCOUNTER 2021-01-28 07:56 | Day surgery (SDC) | payer MEDICAID, SELFPAY ==
[2021-01-25 09:50] VITALS: BMI 29.9
--- NOTE | 2021-01-28 08:08 | ANES.PREANE2 ---
Pre-Anesthetic Assessment Pre-Anesthetic Assessment: Height/Weight: Height 1.7 m Weight 86.636 kg Preop Diagnosis: iron deficiency Proposed Procedure: Operation Date: 01/28/21 09:15 Proposed Procedures p EGD/colon 73811 E6.11 25500(Not Applicable) - Trever Mejia MD s Colonoscopy(Not Applicable) - Trever Mejia MD Familial anesthetic complications: One episode of PONV Was Beta Jesse taken within 24 hours: N/A Was Clonidine taken within 24 hours: N/A Last intake: .> 8 hrs Social: Social History: Tobacco and No alcohol Exam: Pre-Anes Outpt Exam: alert, oriented x 3, clear to auscultation bilaterally and regular rate & rhythm Airway: Cervical ROM: WNL MP: 4 Dentition: Other (no teeth) Additional comments: large tongue Pulmonary: Pulmonary: COPD and GOODMAN CV/HEM: Comments: 2020 stress test CONCLUSION: 1. Normal EKG response to LexiScan infusion. 2. No LexiScan induced chest pain or cardiac arrhythmia. 3. Normal blood pressure and heart rate response. 4. Sestamibi/sestamibi perfusion scan pending; see separate report. Hepatic: Hepatic: Hepatitis (Positive hep c Antibody test) Comments: chronic hep B Anesthetic Plan: ASA status: 3 Anesthesia: MAC Risk of > 500 ml blood loss (7ml/kg in children): No PFSH Anesthesia PFSH: Medical History (Updated 01/17/21 @ 14:29 by Trever Mejia MD) Alcohol dependence, in remission Chronic hepatitis B Nicotine dependence, cigarettes, uncomplicated Schizoaffective disorder, depressive type Unspecified dementia without behavioral disturbance Social History Smoking and tobacco status: current every day smoker cigarettes Packs smoked per day: 1 Smoking risk assessment/counseling performed?: Yes Tobacco counseling given: counseling >3 minutes Alcohol intake: current Alcohol intake frequency: holidays/special occasions only Marital status: Single History of recent travel: No Current gender identity: Male Data Anesthesia Cardiac Studies: No Data to Display
[2021-01-28 08:46] VITALS: BP 140/107; PULSE 102; RESP 18; TEMP 36.1; O2SAT 97
[2021-01-28] MEDS: sodium chloride 0.9% 1,000 ML 30 ML IV (08:59)
--- NOTE | 2021-01-28 09:40 | P.HP_ITS ---
Same Day Surgery H&P Indication for Procedure/HPI DATE OF PROCEDURE: January 28, 2021 CHIEF COMPLAINT/INDICATIONFOR SURGICAL PROCEDURE: Iron deficiency anemia PREOP DIAGNOSIS: Fe def PLANNED PROCEDRUE: Operation Date: 01/28/21 09:15 Proposed Procedures p EGD/colon 89637 E6.11 00841(Not Applicable) - Trever Mejia MD s Colonoscopy(Not Applicable) - Trever Mejia MD Medications/Allergies* Home Medications Medication Instructions Recorded Confirmed Type acetaminophen [Tylenol Extra 1,000 mg PO BID PRN 08/04/19 01/28/21 History Strength] multivitamin [Multiple Vitamins] 1 tab PO DAILY 08/04/19 01/28/21 History Allergies/Adverse Reactions Allergy/AdvReac Type Severity Reaction Status Date / Time Penicillins Allergy Severe ALGY-Anaphy Verified 01/25/21 09:40 laxis celecoxib [From Celebrex] Allergy Unknown Verified 01/25/21 09:40 Current Medications: Generic Name Dose Route Start Last Admin Trade Name Freq PRN Reason Stop Dose Admin Sodium Chloride 1,000 mls @ 30 mls/hr 01/28/21 08:45 01/28/21 08:59 Sodium Chloride 0.9% IV 30 mls/hr .Q24H FRANCY Administration Pertinent History/Comorbid Conditions* Medical History (Updated 01/17/21 @ 14:29 by Trever Mejia MD) Alcohol dependence, in remission Chronic hepatitis B Nicotine dependence, cigarettes, uncomplicated Schizoaffective disorder, depressive type Unspecified dementia without behavioral disturbance Social History Smoking and tobacco status: current every day smoker cigarettes Packs smoked per day: 1 Smoking risk assessment/counseling performed?: Yes Tobacco counseling given: counseling >3 minutes Alcohol intake: current Alcohol intake frequency: holidays/special occasions only Marital status: Single History of recent travel: No Current gender identity: Male Pertinent Exam Findings alert, oriented x 3, clear to auscultation bilaterally, regular rate & rhythm, operative site marked and procedure specific exam findings Recommendations Surgery/Procedure today Coding Level of Care Code Acute 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
[2021-01-28 10:09] VITALS: BP 116/75; PULSE 101; RESP 20; TEMP 36.1; O2SAT 90
[2021-01-28 10:22] VITALS: BP 128/97; PULSE 103; RESP 18; O2SAT 97
--- NOTE | 2021-01-28 19:25 | ANE.PACU2 ---
Inpatient post-anesthesia follow up: Airway intact: Yes Vital signs: Temperature 97 F Pulse Rate 103 Respiratory Rate 18 Blood Pressure 128/97 Pulse Oximetry 97 Oxygen Delivery Me thod Room Air Oxygen Flow Rate 3 Fraction of Inspir ed Oxygen Hydration adequate: Yes Nausea and vomiting: No Pain level: 2 Mental status: Baseline
[2021-01-29 07:45] LABS: H. Pylori / CLO Test Negative
== END 2021-01-28 10:38 | disposition home or self-care (01) ==
PROVIDERS: PCP Internal Medicine; Visit Provider Internal Medicine
PROC: 0DJ08ZZ Inspection of Upper Intestinal Tract, Via Natural or Artificial Opening Endoscopic (ICD-10-PCS; CPT 43235; principal; 2021-01-28 09:15)
PROC: 0DJD8ZZ Inspection of Lower Intestinal Tract, Via Natural or Artificial Opening Endoscopic (ICD-10-PCS; CPT 45378; 2021-01-28 09:15)
DX: D50.9 Iron deficiency anemia, unspecified (principal); F17.210 Nicotine dependence, cigarettes, uncomplicated; K21.00 Gastro-esophageal reflux disease with esophagitis, without bleeding; K29.70 Gastritis, unspecified, without bleeding; J44.9 Chronic obstructive pulmonary disease, unspecified
CPT/HCPCS: 43239; 45378; 87077; 96360; 96361; J2704; J7030

== ENCOUNTER → 2021-03-05 07:45 | Outpatient (BNVA) | payer MEDICAID, SELFPAY | PROVIDERS: PCP Internal Medicine; Visit Provider Nurse Practitioner | DX: F25.1 Schizoaffective disorder, depressive type (principal); F17.210 Nicotine dependence, cigarettes, uncomplicated | CPT/HCPCS: 99214 ==